=== PATIENT | male | born 1980 | race Caucasian/White ===

== ENCOUNTER 2017-10-09 10:36 | Emergency (ER) | payer OTHER ==
[2017-10-09 10:42] VITALS: TEMP 97.9; BMI 33.9
--- NOTE | 2017-10-09 11:18 | PDOC ---
History of Present Illness - General History Source: Patient Exam Limitations: No Limitations - History of Present Illness Initial Comments: 10/09/17 11:24 The patient is a 37 year old male with no past significant medical history who presents to the emergency department with progressively worsening moderate left testicular pain that is non radiating and dysuria since week ago. He describes the pain as burning. He reports the pain is a 10 out of 10 in severity. The patient denies any history of sexually transmitted diseases. The patient denies any recent trauma to the testes. He denies experiencing similar symptoms in the past. He denies any alleviating/modifying factors. The patient denies any hematuria. He denies any fever, chills, vomiting or diarrhea. <Yara Gonzales - Last Filed: 10/09/17 11:25> <Julio Cesar Hooper - Last Filed: 10/09/17 16:08> - General Chief Complaint: Pain Stated Complaint: PAIN Past History <Yara Gonzales - Last Filed: 10/09/17 11:25> - Past Medical History COPD: No - Suicide/Smoking/Psychosocial Hx Smoking History: Never smoked <Julio Cesar Hooper - Last Filed: 10/09/17 16:08> - Past Medical History Allergies/Adverse Reactions: Allergies Allergy/AdvReac Type Severity Reaction Status Date / Time No Known Allergies Allergy Verified 10/09/17 10:42 Home Medications: Ambulatory Orders NK [No Known Home Medication] 10/09/17 Review of Systems - Review of Systems Able to Perform ROS?: Yes Comments:: 10/09/17 11:28 A complete review of 10 out of 10 review of systems is taken and is negative apart from what is previously mentioned below and in the HPI. All Other Systems: Reviewed and Negative <Yara Gonzales - Last Filed: 10/09/17 11:25> *Physical Exam - Vital Signs Last Vital Signs Temp Pulse Resp BP Pulse Ox 97.9 F 83 18 133/80 98 10/09/17 10:40 10/09/17 10:40 10/09/17 10:40 10/09/17 10:40 10/09/17 10:40 - Physical Exam Comments: 10/09/17 11:29 Vitals: Triage Vital signs reviewed General Appearance: moderately distress, well nourished well developed, Head: Atraumatic, normocephalic Eyes: Pupils equal reactive round, extraocular movement intact Neck: Supple;No Nuchal rigidity Chest Wall: Nontender Cardiac: Regular rate and rhythm, no murmurs, no rubs, no gallops, Lungs: Clear to auscultation bilateral, good air movement bilaterally, Abdomen: Soft, nondistended, normal bowel sounds, nontender to palpation : Large left inguinal hernia noted, mobile but not reducible. Rectal: Exam deferred Extremities: Full range of motion to all extremities, no cyanosis, clubbing, or edema Skin: Warm and dry, no rashes or lesions, no petechiae Neuro: AOX3; Cranial Nerves 2-12 grossly intact, Strength intact to all extremities, Sensation intact to all extremities Psych: normal mood, normal affect <Yara Gonzales - Last Filed: 10/09/17 11:25> - Vital Signs Last Vital Signs Temp Pulse Resp BP Pulse Ox 97.9 F 83 18 133/80 98 10/09/17 10:40 10/09/17 10:40 10/09/17 10:40 10/09/17 10:40 10/09/17 10:40 <Julio Cesar Hooper - Last Filed: 10/09/17 16:08> ED Treatment Course - LABORATORY CBC & Chemistry Diagram: 10/09/17 11:55 10/09/17 11:55 <Julio Cesar Hooper - Last Filed: 10/09/17 16:08> Medical Decision Making - Medical Decision Making 10/09/17 12:57 History and examination consistent with inguinal hernia. Patient states he has had this issue for greater than year but today was slightly more painful than usual. Does not appear incarcerated however cannot be fully reduced. We'll CT with oral contrast to better assess pain meds fluids labs. Left inguinal hernia no evidence of obstruction on CAT scan. We will have patient follow-up with Dr. Damico surgery this week. He'll return to the emergency department for any severe worsening pain vomiting abdominal distention or for any concerns. 10/09/17 16:08 <Julio Cesar Hooper - Last Filed: 10/09/17 16:08> *DC/Admit/Observation/Transfer - Attestations Scribe Attestion: 10/09/17 11:29 Documentation prepared by Yara Gonzales, acting as back office medical assistant for Julio Cesar Hooper MD. <Yara Gonzales - Last Filed: 10/09/17 11:25> - Discharge Dispostion Admit: No <Julio Cesar Hooper - Last Filed: 10/09/17 16:08> Diagnosis at time of Disposition: Inguinal hernia Qualifiers: Obstruction and gangrene presence: without obstruction or gangrene Laterality: unilateral Recurrence: recurrent Qualified Code(s): K40.91 - Unilateral inguinal hernia, without obstruction or gangrene, recurrent - Discharge Dispostion Condition at time of disposition: Stable - Referrals Referrals: Gino Damico MD [Staff Physician] - - Patient Instructions Printed Discharge Instructions: Groin Hernia -- Adult Additional Instructions: Wear supportive underwear. Take [id number] Aleve as directed on packaging for 3 days. Follow-up with Dr. Damico surgery next week. Return to the emergency department immediately for any severe changing pain abdominal distention vomiting or for any concerns.
[2017-10-09] MEDS ORDERED: morphine CARPU-JECT 4 MG/1 ML DISP.SYRIN IVPUSH ONE (11:28)
[2017-10-09 12:14] LABS: BASO % 0.8 % (0-2.0); EOS % 2.8 % (0-4.5); HEMOGLOBIN 18.1 GM/dL (11.7-16.9); LYMPH % 26.7 % (8-40); MCH 29.4 pg (25.7-33.7); MCHC 32.9 g/dl (32.0-35.9); MEAN CELL VOLUME 89.3 fl (80-96); MEAN PLT VOLUME 7.9 fl (7.5-11.1); MONO % 11.1 % (3.8-10.2); NEUT % 58.6 % (42.8-82.8); PLATELET COUNT 265 K/MM3 (134-434); RBC 6.16 M/mm3 (4.00-5.60); RDW 14.1 % (11.9-15.9); WHITE BLOOD COUNT 9.5 K/mm3 (4.0-10.0)
[2017-10-09 12:31] LABS: PROTHROMBIN TIME (PATIENT) 11.3 SEC (9.98-11.88)
[2017-10-09 13:39] LABS: ALBUMIN 4.1 g/dl (3.4-5.0); ANION GAP 7 (8-16); BLOOD UREA NITROGEN 11 mg/dL (7-18); CALCIUM 8.8 mg/dL (8.5-10.1); CHLORIDE 103 mmol/L (98-107); CO2 28 mmol/L (21-32); CREATININE 0.8 mg/dL (0.7-1.3); GLUCOSE,RANDOM 91 mg/dL (74-106); SGOT/AST 43 U/L (15-37); SGPT/ALT 125 U/L (12-78); SODIUM 138 mmol/L (136-145)
[2017-10-09 13:43] LABS: ALK PHOS 95 U/L (45-117); BILIRUBIN,TOTAL 1.9 mg/dL (0.2-1.0); TOT PROT 7.9 g/dl (6.4-8.2)
[2017-10-09 16:23] VITALS: BP 128/85; PULSE 91
== END 2017-10-09 16:23 | disposition home or self-care (01) ==
LOC: JER 10:36
PROC: 3E033NZ Introduction of Analgesics, Hypnotics, Sedatives into Peripheral Vein, Percutaneous Approach (ICD-10-PCS; principal; 2017-10-09)
DX: K40.91 Unilateral inguinal hernia, without obstruction or gangrene, recurrent (principal)
CPT/HCPCS: 36415; 74176-TC; 76870-TC; 80053; 85025; 85610; 85730; 86850; 86900; 86901; 96374; 99283-25

== ENCOUNTER 2017-10-27 10:22 | Day surgery (SDC) | payer OTHER ==
[2017-10-27 10:29] VITALS: TEMP 98.3; BMI 34.7
[2017-10-27] MEDS ORDERED: LACTATED RINGERS SOLUTION 1000 ML INFUS.BAG IV ONE (10:54)
[2017-10-27 11:15] LABS: EOS % 2.4 % (0-4.5); HEMATOCRIT 52.7 % (35.4-49); HEMOGLOBIN 17.7 GM/dL (11.7-16.9); LYMPH % 24.9 % (8-40); MCH 29.7 pg (25.7-33.7); MCHC 33.6 g/dl (32.0-35.9); MEAN CELL VOLUME 88.4 fl (80-96); MEAN PLT VOLUME 7.9 fl (7.5-11.1); MONO % 10.4 % (3.8-10.2); NEUT % 61.3 % (42.8-82.8); PLATELET COUNT 288 K/MM3 (134-434); RBC 5.96 M/mm3 (4.00-5.60); RDW 13.5 % (11.9-15.9); WHITE BLOOD COUNT 9.9 K/mm3 (4.0-10.0)
[2017-10-27 11:26] LABS: INR 0.97 (0.82-1.09)
[2017-10-27 11:39] LABS: ALBUMIN 3.8 g/dl (3.4-5.0); ALK PHOS 84 U/L (45-117); ANION GAP 7 (8-16); BILIRUBIN,TOTAL 1.5 mg/dL (0.2-1.0); BLOOD UREA NITROGEN 14 mg/dL (7-18); CALCIUM 8.5 mg/dL (8.5-10.1); CHLORIDE 105 mmol/L (98-107); CO2 28 mmol/L (21-32); CREATININE 0.6 mg/dL (0.7-1.3); GLUCOSE,RANDOM 101 mg/dL (74-106); SGPT/ALT 102 U/L (12-78); SODIUM 140 mmol/L (136-145); TOT PROT 7.5 g/dl (6.4-8.2)
[2017-10-27 11:44] LABS: SGOT/AST 41 U/L (15-37)
[2017-10-27 11:45] LABS: POTASSIUM 4.2 mmol/L (3.5-5.1)
--- NOTE | 2017-10-27 11:50 | PDOC ---
*Physical Exam - Vital Signs Last Vital Signs Temp Pulse Resp BP Pulse Ox 98.3 F 100 H 15 154/94 96 10/27/17 10:26 10/27/17 10:26 10/27/17 10:26 10/27/17 10:26 10/27/17 10:26 Heart Score/ECG Review #1 ECG reviewed & interpreted by me at: 11:35 10/27/17 11:50 NSR 78, no std/becca, TWI III, normal axis, normal intervals, QTC 401 msec ED Treatment Course - LABORATORY CBC & Chemistry Diagram: 10/27/17 11:00 10/27/17 11:00 - ADDITIONAL ORDERS Additional order review: 10/27/17 11:00 RBC 5.96 H MCV 88.4 MCHC 33.6 RDW 13.5 MPV 7.9 Neutrophils % 61.3 Lymphocytes % 24.9 Monocytes % 10.4 H Eosinophils % 2.4 Basophils % 1.0 - Medications Given in the ED: ED Medications Discontinued Medications Generic Name Dose Route Start Last Admin Trade Name Javierq PRN Reason Stop Dose Admin Lactated Ringer's 1,000 ml 10/27/17 10:54 10/27/17 11:10 Lactated Ringers Solution IV 10/27/17 10:55 1,000 ml ONCE ONE Administration Medical Decision Making - Medical Decision Making 10/27/17 11:51 Pt seen by the Advanced Practice Provider under my direct supervision Ancillary studies reviewed I agree with plan as outlined by the Advanced Practice Provider PARISA Evans *DC/Admit/Observation/Transfer Diagnosis at time of Disposition: Incarcerated left inguinal hernia - Discharge Dispostion Disposition: HOME Condition at time of disposition: Stable - Prescriptions - Referrals - Patient Instructions - Post Discharge Activity
--- NOTE | 2017-10-27 13:43 | PDOC ---
History of Present Illness - General Chief Complaint: Pain, Acute Stated Complaint: TESTICLE PAIN Time Seen by Provider: 10/27/17 10:42 History Source: Patient Exam Limitations: No Limitations - History of Present Illness Initial Comments: 10/27/17 12:04 Patient is a 37-year-old male with past medical history of left inguinal hernia previously diagnosed in our ED on 10/09/2017, who presents to the emergency department today complaining of increased pain to the site of his hernia. Patient states that he saw Dr. Damico who recommended surgery to repair his hernia, and states that he is supposed to have surgery today. Last oral intake last night. He states that the pain in his hernia his gotten worse and more unbearable. He denies fevers, chills, shortness of breath, difficulty breathing , flulike symptoms, nausea, vomiting, diarrhea, constipation, frequency, urgency and hematuria. Past History - Travel Traveled outside of the country in the last 30 days: No Close contact w/someone who was outside of country & ill: No - Past Medical History Allergies/Adverse Reactions: Allergies Allergy/AdvReac Type Severity Reaction Status Date / Time No Known Allergies Allergy Verified 10/27/17 10:25 Home Medications: Ambulatory Orders Oxycodone HCl/Acetaminophen [Percocet 5-325 mg Tablet] 1 - 2 tab PO Q6H PRN #20 tablet MDD 6 10/27/17 Anemia: No Asthma: No Cancer: No Cardiac Disorders: No CVA: No COPD: No CHF: No DVT: No Dementia: No Diabetes: No GI Disorders: No Disorders: No HTN: No Hypercholesterolemia: No Liver Disease: No Seizures: No - Immunization History Immunization Up to Date: Yes - Suicide/Smoking/Psychosocial Hx Smoking History: Never smoked Information on smoking cessation initiated: No Hx Alcohol Use: No Drug/Substance Use Hx: No Substance Use Type: None Hx Substance Use Treatment: No Review of Systems - Review of Systems Able to Perform ROS?: Yes Comments:: 10/27/17 12:54 CONSTITUTIONAL: Absent: fever, chills, diaphoresis, generalized weakness, malaise, loss of appetite HEENT: Absent: rhinorrhea, nasal congestion, throat pain, throat swelling, difficulty swallowing, mouth swelling, ear pain, eye pain, visual Changes CARDIOVASCULAR: Absent: chest pain, loss of consciousness, palpitations, irregular heart rate, peripheral edema RESPIRATORY: Absent: cough, shortness of breath, dyspnea with exertion, orthopnea, wheezing, stridor, hemoptysis GASTROINTESTINAL: Absent: abdominal pain, abdominal distension, nausea, vomiting, diarrhea, constipation, melena, hematochezia GENITOURINARY: Present: L testicular pain Absent: dysuria, frequency, urgency, hesitancy, hematuria, flank pain, genital pain MUSCULOSKELETAL: Absent: myalgia, arthralgia, joint swelling SKIN: Absent: rash, itching, pallor HEMATOLOGIC/IMMUNOLOGIC: Absent: easy bleeding, easy bruising, lymphadenopathy, frequent infections ENDOCRINE: Absent: unexplained weight gain, unexplained weight loss, heat intolerance, cold intolerance NEUROLOGIC: Absent: headache, focal weakness or paresthesias, dizziness, unsteady gait, seizure, mental status changes, bladder or bowel incontinence PSYCHIATRIC: Absent: anxiety, depression, suicidal or homicidal ideation, hallucinations. Is the patient limited Maltese proficient: No *Physical Exam - Vital Signs Last Vital Signs Temp Pulse Resp BP Pulse Ox 98.3 F 88 16 138/88 98 10/27/17 10:26 10/27/17 13:33 10/27/17 13:33 10/27/17 13:33 10/27/17 13:33 - Physical Exam Comments: 10/27/17 12:54 GENERAL: Well developed, well nourished. Awake and alert. No acute distress. HEENT: Normocephalic, atraumatic. PERRLA, EOMI. No conjunctival pallor. Sclera are non- icteric. Moist mucous membranes. Oropharynx is clear. NECK: Supple. Full ROM. No JVD. Carotid pulses 2+ and symmetric, without bruits. No thyromegaly. No lymphadenopathy. CARDIOVASCULAR: Regular rate and rhythm. No murmurs, rubs, or gallops. Distal pulses are 2+ and symmetric. PULMONARY: No evidence of respiratory distress. Lungs clear to auscultation bilaterally. No wheezing, rales or rhonchi. ABDOMINAL: TTP LLQ Soft. Non-distended. No rebound or guarding. No organomegaly. Normoactive bowel sounds. : Incarcerated L ingunal hernia. Testicles are freely mobile b/l. No pain with palpation of testicles. MUSCULOSKELETAL Normal range of motion at all joints. No bony deformities or tenderness. No CVA tenderness. EXTREMITIES: No cyanosis. No clubbing. No edema. No calf tenderness. SKIN: Warm and dry. Normal capillary refill. No rashes. No jaundice. NEUROLOGICAL: Alert, awake, appropriate. Cranial nerves 2-12 intact. No deficits to light touch and temperature in face, upper extremities and lower extremities. No motor deficits in the in face, upper extremities and lower extremities. Normoreflexic in the upper and lower extremities. Normal speech. Toes are down- going bilaterally. Gait is normal without ataxia. PSYCHIATRIC: Cooperative. Good eye contact. Appropriate mood and affect. ED Treatment Course - LABORATORY CBC & Chemistry Diagram: 10/27/17 11:00 10/27/17 11:00 - ADDITIONAL ORDERS Additional order review: Laboratory Results 10/27/17 10/27/17 10/27/17 11:00 11:00 11:00 PT with INR 11.00 INR 0.97 Sodium 140 Potassium 4.2 Chloride 105 Carbon Dioxide 28 Anion Gap 7 L BUN 14 D Creatinine 0.6 L D Creat Clearance w eGFR > 60 Random Glucose 101 Calcium 8.5 Total Bilirubin 1.5 H D AST 41 H ALT 102 H Alkaline Phosphatase 84 Total Protein 7.5 Albumin 3.8 Blood Type O POSITIVE Antibody Screen Negative 10/27/17 11:00 RBC 5.96 H MCV 88.4 MCHC 33.6 RDW 13.5 MPV 7.9 Neutrophils % 61.3 Lymphocytes % 24.9 Monocytes % 10.4 H Eosinophils % 2.4 Basophils % 1.0 - Medications Given in the ED: ED Medications Discontinued Medications Generic Name Dose Route Start Last Admin Trade Name Freq PRN Reason Stop Dose Admin Lactated Ringer's 1,000 ml 10/27/17 10:54 10/27/17 11:10 Lactated Ringers Solution IV 10/27/17 10:55 1,000 ml ONCE ONE Administration Medical Decision Making - Medical Decision Making 10/27/17 12:55 Patient is a 37-year-old male with past medical history of left inguinal hernia , presents to the ED stating he is to have surgery on his hernia today by Dr. Guzman. Hernia is currently incarcerated, however, abdomen is benign. Will not rescan the patient as last CT scan was on 10/09/17. Pt. has been NPO since last evening. Will order pre-op labs, EKG at this time. Will page Dr. Guzman. 1. CBC, CMP, PT/INR, Type and Screen. 2. EKG 3. IVF LR 4. Re-evaluate 10/27/17 14:[address] Guzman. He evaluated the pt and will take him to the OR today. Lab work shows mild dehydration at this time. K+ within normal limits. Will admit the pt. to Dr. Guzman in [facility]. *DC/Admit/Observation/Transfer Diagnosis at time of Disposition: Incarcerated left inguinal hernia - Discharge Dispostion Disposition: HOME Condition at time of disposition: Stable Admit: Yes - Prescriptions - Referrals - Patient Instructions - Post Discharge Activity
[2017-10-27] MEDS ORDERED: LACTATED RINGERS SOLUTION 1,000 ML/1,000 ML INFUS.BAG IV SCH (14:00)
[2017-10-27] MEDS ORDERED: ROCURONIUM BROMIDE 50 MG/5 ML VIAL ONE (14:12)
[2017-10-27] MEDS ORDERED: LIDOCAINE HCL 2% 100 MG/5 ML DISP.SYRIN ONE (14:12)
[2017-10-27] MEDS ORDERED: fentaNYL CITRATE 250 MCG/5 ML VIAL ONE (14:12)
[2017-10-27] MEDS ORDERED: DEXAMETHASONE SOD PHOSPHATE 4 MG/1 ML VIAL ONE ×2 (14:12→17:24)
[2017-10-27] MEDS ORDERED: MIDAZOLAM HCL 2 MG/2 ML SINGLE DOSE VIAL ONE (14:12)
[2017-10-27] MEDS ORDERED: PROPOFOL 20 ML ONE (14:12)
[2017-10-27] MEDS ORDERED: DESFLURANE GAS 240 ML BOTTLE IH ONE (14:19)
[2017-10-27] MEDS ORDERED: LIDOCAINE HCL 1%, 10 MG/ML (20ML VIAL) ONE (14:57)
[2017-10-27] MEDS ORDERED: BUPIVACAINE HCL/PF 0.5% (5MG/ML) 10 ML VIAL ONE (14:57)
--- NOTE | 2017-10-27 15:49 | HP ---
History & Physical Update - History History: No Change - Physical Physical: No Change - Assessment Assessment: No Change - Plan Plan: No Change
[2017-10-27] MEDS ORDERED: LIDOCAINE HCL 1%, 10 MG/ML (20ML VIAL) NR ONE (16:13)
[2017-10-27] MEDS ORDERED: BUPIVACAINE HCL/PF 0.5% (5MG/ML) 10 ML VIAL IJ ONE (16:13)
[2017-10-27] MEDS ORDERED: ONDANSETRON 4 MG/2 ML VIAL IVPUSH PRN (16:40)
[2017-10-27] MEDS ORDERED: LACTATED RINGERS SOLUTION 1,000 ML IV SCH (16:45)
[2017-10-27] MEDS ORDERED: GLYCOPYRROLATE 0.2 MG/1 ML VIAL ONE (17:24)
[2017-10-27] MEDS ORDERED: NEOSTIGMINE METHYLSULFATE 0.5 MG/ML - 10 ML MDV ONE (17:24)
[2017-10-27] MEDS ORDERED: KETOROLAC TROMETHAMINE 30 MG/1 ML VIAL ONE (17:29)
[2017-10-27] MEDS ORDERED: oxyCODONE HCL 5 MG TABLET PO PRN ×2 (17:57→18:08)
[2017-10-27] MEDS ORDERED: ACETAMINOPHEN 325 MG TABLET (FP) PO PRN (17:57)
[2017-10-27] MEDS ORDERED: ELECTROLYTE-148 SOLN 1,000 ML IV SCH (18:08)
--- NOTE | 2017-10-27 18:19 | SURG ---
Surgery Heat Sealing Machine Operator Note Heat Sealing Machine Operator: Martha Diaz PA-C Date of Service: 10/27/17 Diagnosis: incarcerated inguinal hernia Procedure: incarcerated inguinal hernia repair with mesh I was present for the entirety of the operative procedure. For further detail, please refer to operative report. Visit type - Case Type Case Type: ED Admission - Emergency Emergency Visit: Yes Care time: The patient presented to the Emergency Department on the above date and was hospitalized for further evaluation of their emergent condition. - New patient This patient is new to me today: Yes Date on this admission: 10/27/17
--- NOTE | 2017-10-27 18:19 | OP ---
Operative Note - Note: Operative Date: 10/27/17 Pre-Operative Diagnosis: incarcerated inguinal hernia Operation: incarcerated inguinal hernia repair with mesh Post-Operative Diagnosis: Same as Pre-op Surgeon: iGno Damico Aircraft Armorer: Martha Diaz Anesthesiologist/DIRECTOR STATE PHARM[employer]: Sky Covarrubias Anesthesia: General Specimens Removed: inguinal hernia sack Estimated Blood Loss (mls): 15 Fluid Volume Replaced (mls): 1,000 Operative Report Dictated: Yes
[2017-10-27] MEDS ORDERED: oxyCODONE HCL 5 MG TABLET ONE (19:41)
[2017-10-27 20:43] VITALS: BP 136/80; PULSE 90
--- NOTE | 2017-10-28 09:44 | EKG ---
Test Reason : Blood Pressure : / mmHG Vent. Rate : 078 BPM Atrial Rate : 078 BPM P-R Int : 162 ms QRS Dur : 098 ms QT Int : 352 ms P-R-T Axes : 052 015 007 degrees QTc Int : 401 ms NORMAL SINUS RHYTHM NORMAL ECG NO PREVIOUS ECGS AVAILABLE Confirmed by RAMAN WARD MD ([id number]) on 10/28/2017 9:44:50 AM Referred By: Confirmed By:RAMAN WARD MD
--- NOTE | 2017-11-07 12:48 | PATH ---
Surgical Pathology Report Patient Name: ISSA JAMESON [facility]. Rec. #: [id number] /Age/Gender: 1980 (Age: 37) / M Account: [id number] Location: [facility] SURGICAL Taken: 10/27/2017 Received: 10/28/2017 Reported: 11/07/2017 Physicians: Gino Damico MD Specimen(s) Received PRE PERITONEAL FAT Clinical History Left incarcerated inguinal hernia Final Diagnosis PRE PERITONEAL FAT, EXCISION: FIBROMEMBRANOUS AND FIBROADIPOSE TISSUE CONSISTENT WITH HERNIA SAC AND CONTENTS. Electronically Signed Lillian Garcia M.D. Gross Description Received in formalin labeled "pre-peritoneal fat," is a 6.0 x 4.3 x 1.8 cm cordero-mckenna, irregular portion of yellow, lobulated adipose tissue with attached fibromembranous tissue, consistent with a hernia sac. A b2b sales representative section is submitted in one cassette. /10/29/201710/29/2017
== END 2017-10-27 20:25 | disposition home or self-care (01) ==
LOC: JER 10:22 → JASU-SURG 14:54
PROVIDERS: ATTEND Surgery
PROC: 0YU60JZ Supplement Left Inguinal Region with Synthetic Substitute, Open Approach (ICD-10-PCS; principal; 2017-10-27 16:00)
DX: K40.30 Unilateral inguinal hernia, with obstruction, without gangrene, not specified as recurrent (principal)
CPT/HCPCS: 36415; 80053; 85025; 85610; 86850; 86900; 86901; 88302-TC; 93005; 93010; 94760; 99283-25